=== PATIENT | male | born 1980 | race Caucasian/White ===

== ENCOUNTER 2025-04-01 23:09 | Emergency (ER) | payer MEDICAID ==
[~2025-04-01] VITALS: Ht 170.2 cm; Wt 83.0 kg
[2025-04-01 23:56] VITALS: O2SAT 100
[2025-04-02 01:14] LABS: BASOPHILS % 1.1 % (0.0-2.0); HEMATOCRIT. 44.6 % (42.0-52.0); HEMOGLOBIN. 15.4 g/dL (14.0-18.0); LYMPHOCYTES % 45.5 % (20.0-50.0); MEAN CORPUSCULAR HEMOGLOBIN 31.4 pg (28.0-32.0); MEAN CORPUSCULAR HGB CONC 34.6 g/dL (31.0-37.0); MEAN CORPUSCULAR VOLUME 90.8 fL (80.0-94.0); MONOCYTES % 8.6 % (2.0-8.0); NEUTROPHILS % 40.8 % (40.0-76.0); PLATELET 237 x1000/uL (130-400); RED BLOOD CELL COUNT 4.91 mill/uL (4.7-6.1); RED CELL DISTRIBUTION WIDTH 12.5 % (11.6-14.6); WHITE BLOOD COUNT 7.9 x1000/uL (4.5-11.0)
[2025-04-02 01:17] LABS: CLARITY URINE CLEAR (CLEAR); COLOR URINE YELLOW (YELLOW); GLUCOSE URINE NEGATIVE (NEGATIVE); KETONES URINE NEGATIVE (NEGATIVE); LEUKOCYTE ESTERASE URINE NEGATIVE (NEGATIVE); NITRITE URINE NEGATIVE (NEGATIVE); OCCULT BLOOD URINE 1+ (NEGATIVE); PH URINE 6.5 (4.5-8.0); PROTEIN URINE NEGATIVE (NEGATIVE); SPECIFIC GRAVITY URINE 1.016 (1.005-1.030)
[2025-04-02 01:20] LABS: CHLORIDE 105 mEq/L (98-107); POTASSIUM 3.3 mEq/L (3.5-5.1); SODIUM 141 mEq/L (136-145)
[2025-04-02 01:21] LABS: CALCIUM 9.1 mg/dL (8.7-10.4); CARBON DIOXIDE 26 mEq/L (21-32)
[2025-04-02 01:26] LABS: CREATININE 0.9 mg/dL (0.6-1.3); GLUCOSE 147 mg/dL (70-105); UREA NITROGEN BLOOD 13 mg/dL (9-23)
[2025-04-02 01:28] LABS: ALANINE AMINOTRANSFERASE 20 IU/L (10-49); ALBUMIN 4.7 g/dL (3.2-4.8); ASPARTATE AMINOTRANSFERASE 21 IU/L (<34); BILIRUBIN DIRECT 0.2 mg/dL (<=3.0); PROTEIN TOTAL 7.2 g/dL (6.0-8.3)
[2025-04-02 01:36] LABS: TROPONIN I HIGH SENSITIVITY < 4 ng/L (3.0-53)
[2025-04-02 01:55] LABS: BACTERIA URINE NONE SEEN; SQUAMOUS EPITHELIAL CELL URINE NONE SEEN /lpf (RARE/1+); WBC URINE NONE SEEN /hpf (0-2)
[2025-04-02 04:08] VITALS: BP 115/79; PULSE 74; RESP 18; TEMP 36.7; O2SAT 100
== END 2025-04-02 04:10 | disposition home or self-care (01) ==
LOC: ER 23:09
DX: R07.89 Other chest pain (principal); Z98.890 Other specified postprocedural states
CPT/HCPCS: 36415; 71045; 80048; 80076; 81003; 84484; 85025; 86850; 86900; 93005; 99285

== ENCOUNTER 2025-07-16 20:14 | Emergency (ER) | payer MEDICAID ==
[~2025-07-16] VITALS: Ht 170.2 cm; Wt 82.0 kg
[2025-07-16 20:38] VITALS: O2SAT 99
[2025-07-16] MEDS ORDERED: NAPR-1176 MT (22:10)
[2025-07-16] MEDS ORDERED: LIDO-53 TP (22:10)
[2025-07-16] MEDS: KETOROLAC 15MG/ML VIAL IM ONE (22:16)
[2025-07-16 22:35] VITALS: BP 126/83; PULSE 70; RESP 15; TEMP 36.8; O2SAT 100
== END 2025-07-16 22:35 | disposition home or self-care (01) ==
LOC: ER 20:14
DX: S50.02XA Contusion of left elbow, initial encounter (principal); W22.8XXA Striking against or struck by other objects, initial encounter; Y93.89 Activity, other specified; Y92.89 Other specified places as the place of occurrence of the external cause; Y99.8 Other external cause status
CPT/HCPCS: 99283; 73080; 96372; J1885